=== PATIENT | female | born 1985 | race Caucasian/White ===

== ENCOUNTER 2021-02-03 16:37 | Emergency (ER) | payer OTHER ==
[~2021-02-03] VITALS: Ht 154.9 cm; Wt 52.1 kg
[2021-02-03 17:14] VITALS: BP 119/83
--- NOTE | 2021-02-03 17:32 | PHYS DOC ---
Past History Past Surgical History: No Surgical History (MAGID SOSA MD) Alcohol Use: None (MAGDI SOSA MD) General Adult EDM: Chief Complaint: PSYCH EVALUATION HPI: HPI: Patient coming in for depression and occasional suicidal thoughts. Patient feels like she feels like her head is not right. Denies any self-harm or hallucinations. Patient states she was released from a present in [place] about 6 months ago, states that for the last 4 years of it she was in the mental song of the facility. Patient takes risperidone, and states she has been compliant with her medications. Is currently living at the [facility]. She denies any recent stressors and feels safe with her surroundings. Denies any alcohol or drugs. (MAGDI SOSA MD) Review of Systems: Review of Systems: All other systems within normal limits except for as noted in the HPI (MAGDI SOSA MD) Physical Exam: PE: Constitutional: Well developed, well nourished, no acute distress, non-toxic appearance. [] HENT: Normocephalic, atraumatic, bilateral external ears normal, oropharynx moist, no oral exudates, nose normal. [] Eyes: PERRLA, EOMI, conjunctiva normal, no discharge. [] Neck: Normal range of motion, no tenderness, supple, no stridor. [] Cardiovascular:Heart rate regular rhythm, no murmur [] Lungs & Thorax: Bilateral breath sounds clear to auscultation [] Abdomen: Bowel sounds normal, soft, no tenderness, no masses, no pulsatile masses. [] Skin: Warm, dry, no erythema, no rash. [] Back: No tenderness, no CVA tenderness. [] Extremities: No tenderness, no cyanosis, no clubbing, ROM intact, no edema. [] Neurologic: Alert and oriented X 3, normal motor function, normal sensory function, no focal deficits noted. [] Psychologic: Affect normal, judgement normal, mood normal. [] (MAGDI SOSA MD) Current Patient Data: Vital Signs: Vital Signs Date Time Temp Pulse Resp B/P (MAP) Pulse Ox O2 Delivery O2 Flow Rate FiO2 02/03/21 17:14 18 119/83 (95) 100 Room Air (MAGDI SOSA MD) EKG: EKG: [] (MAGDI SOSA MD) Radiology/Procedures: Radiology/Procedures: [] (MAGDI SOSA MD) Heart Score: C/O Chest Pain: No Risk Factors: Risk Factors: DM, Current or recent (<one month) smoker, HTN, HLP, family history of CAD, obesity. Risk Scores: Score 0 - 3: 2.5% MACE over next 6 weeks - Discharge Home Score 4 - 6: 20.3% MACE over next 6 weeks - Admit for Clinical Observation Score 7 - 10: 72.7% MACE over next 6 weeks - Early Invasive Strategies (MAGDI SOSA MD) Course & Med Decision Making: Course & Med Decision Making Patient pending medical clearance at shift change. (MAGDI SOSA MD) Course & Med Decision Making See Dr. Sosa chart prior shift change. See PAT report/. Impression: 1. Depression 2. Anxiety 3. Suicidal Ideation.- No active plan (STEPHANI WARD MD) Dragon Disclaimer: Dragon Disclaimer: This electronic medical record was generated, in whole or in part, using a voice recognition dictation system. (MAGDI SOSA MD) Departure Departure: Referrals: PCP,NO (PCP) MAGDI SOSA MD Feb 03, 2021 17:32 STEPHANI WARD MD Feb 03, 2021 18:40
--- NOTE | 2021-02-03 17:53 | EKG ---
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
== END 2021-02-03 18:15 | disposition left against medical advice (07) ==
LOC: ER 16:37
DX: R45.851 Suicidal ideations (principal); F41.9 Anxiety disorder, unspecified; F32.9 Major depressive disorder, single episode, unspecified
CPT/HCPCS: 93005; 99285

== ENCOUNTER 2021-02-04 08:50 | Emergency (ER) | payer OTHER ==
[~2021-02-04] VITALS: Ht 154.9 cm; Wt 53.0 kg
--- NOTE | 2021-02-04 09:20 | NUR ---
PAT team called back
--- NOTE | 2021-02-04 09:38 | PHYS DOC ---
Past History Past Medical History: Anxiety, Depression, Schizophrenia Past Surgical History: No Surgical History Smoking: Non-smoker Alcohol Use: None Drug Use: None General Adult EDM: Chief Complaint: PSYCH EVALUATION HPI: HPI: 35-year-old female with history of schizophrenia presents to the ED with chief complaint of "going crazy". Patient states she has felt the sensation of feeling "out of control" for the last month. However today, she felt that she needed more help. Patient states that she is compliant with her risperidone medication. Patient denies any suicidal ideation or homicidal ideation, auditory or visual hallucinations. Patient is currently living at the [facility]. She reports following up with the [facility], where she sees Renae Ayala. Patient states she was hospitalized for psychiatric evaluation on Aug 28, 2020. Patient denies any medical concerns at this time. Patient is accompanied by care solid waste facility operator. Review of Systems: Review of Systems: Constitutional: Denies fever or chills Eyes: Denies redness or eye pain HENT: Denies nasal congestion or sore throat Respiratory: Denies cough or shortness of breath Cardiovascular: Denies chest pain or palpitations GI: Denies abdominal pain, nausea, or vomiting : Denies dysuria or hematuria Musculoskeletal: Denies back pain or joint pain Integument: Denies rash or skin lesions Neurologic: Denies headache, focal weakness or sensory changes Complete systems were reviewed and found to be within normal limits, except as documented in this note. Allergies: Allergies: Allergies Coded Allergies Type Severity Reaction Last Updated Verified No Known Drug Allergies 02/04/21 No Physical Exam: PE: Constitutional: Well developed, well nourished, no acute distress, non-toxic appearance HENT: Normocephalic, atraumatic Eyes: PERRL, EOMI, conjunctiva normal, no discharge Neck: Normal range of motion, no tenderness, supple Lungs & Thorax: No respiratory distress, equal chest rise and fall Abdomen: Soft, no tenderness Skin: Warm, dry, no erythema, no rash Extremities: No tenderness, ROM intact, no edema Neurologic: Alert and oriented X 3, normal motor function, normal sensory function, no focal deficits noted Psychologic: Affect anxious and withdrawn Current Patient Data: Vital Signs: Vital Signs Date Time Temp Pulse Resp B/P (MAP) Pulse Ox O2 Delivery O2 Flow Rate FiO2 02/04/21 09:09 97.9 66 18 93/63 (73) 98 Room Air EKG: EKG: [] Radiology/Procedures: Radiology/Procedures: [] Heart Score: C/O Chest Pain: N/A Course & Med Decision Making: Course & Med Decision Making 35-year-old female with history of schizophrenia presents to the ED with chief complaint of "going crazy". Psychiatric assessment team called for evaluation of patient. Psychiatric assessment team stated patient is safe to outpatient psychiatric evaluation center due to no suicidal ideation or homicidal ideation. Patient to follow with [facility]. Patient is resting comfortably in ED bed, in no acute distress and has no additional medical concerns at this time. Patient stable for discharge with outpatient follow-up with PCP/mental health. Discussed findings and plan with patient, who acknowledges understanding and agreement. Kelsi Disclaimer: Kelsi Disclaimer: This electronic medical record was generated, in whole or in part, using a voice recognition dictation system. Departure Departure: Impression: Primary Impression: Encounter for psychiatric assessment Additional Impression: Schizophrenia Qualified Codes: F20.9 - Schizophrenia, unspecified Disposition: 01 HOME / SELF CARE / HOMELESS Condition: STABLE Referrals: PCP,NO (PCP) Patient Instructions: Schizophrenia Additional Instructions: Please follow closely with [facility] for further mental health care. DEBRA ORTIZ DO Feb 04, 2021 09:38
[2021-02-04 10:46] LABS: AMPHETAMINE/METHAMPHETAMINE NEG (NEG); BARBITURATES NEG (NEG); BENZODIAZEPINES NEG (NEG); CANNABINOIDS NEG (NEG); COCAINE NEG (NEG); METHADONE NEG (NEG); OPIATES NEG (NEG); PHENCYCLIDINE NEG (NEG)
[2021-02-04 11:12] VITALS: BP 97/66
[2021-02-04 11:55] LABS: BACTERIA,URINE FEW /HPF (0-FEW); BILIRUBIN,URINE NEG (NEG); CLARITY,URINE HAZY; COLOR,URINE YELLOW; GLUCOSE,URINE NEG (NEG); NITRITE,URINE NEG (NEG); RBC,URINE OCC /HPF (0-2); SQUAMOUS EPITHELIAL CELL,UR MANY /LPF; UROBILINOGEN,URINE 0.2 mg/dL (0.2 mg/dL)
== END 2021-02-04 11:25 | disposition home or self-care (01) ==
LOC: ER 08:50
DX: Z00.8 Encounter for other general examination (principal); F20.9 Schizophrenia, unspecified; F41.9 Anxiety disorder, unspecified; F32.9 Major depressive disorder, single episode, unspecified
CPT/HCPCS: 36415; 80307; 81001; 81025; 87086; 99283

== ENCOUNTER 2021-02-11 12:55 | Emergency (ER) | payer OTHER | END 2021-02-11 14:13 | disposition left against medical advice (07) | LOC: ER 12:55 | DX: R45.851 Suicidal ideations (principal); Z53.21 Procedure and treatment not carried out due to patient leaving prior to being seen by health care provider ==

== ENCOUNTER 2021-03-31 09:57 | Emergency (ER) | payer OTHER ==
[~2021-03-31] VITALS: Ht 154.9 cm; Wt 53.0 kg
[2021-03-31 10:08] VITALS: BP 110/81
--- NOTE | 2021-03-31 10:51 | PHYS DOC ---
Past History Past Medical History: Anxiety, Depression, Schizophrenia (DARRIN WHITE APRN) Past Surgical History: No Surgical History (DARRIN WHITE APRN) Smoking: Non-smoker Alcohol Use: None Drug Use: None (DARRIN WHITE APRN) General Adult EDM: Chief Complaint: DEPRESSION HPI: HPI: Patient is a 36-year-old female who presents today for crying. Patient states that she has been crying off and on over the past 6 years due to her incarceration, she recently was released from assisted and August 2020, and she humza nues to have problems with depression and crying. Patient states that she sees a counselor at the [facility] that she is currently residing in and she has an appointment April 02, 2021 with a psychiatrist for further management of her depression. Patient at this time denies suicidal and homicidal ideations. (DARRIN WHITE APRN) Review of Systems: Review of Systems: Constitutional: Denies fever or chills Eyes: Denies change in visual acuity HENT: Denies nasal congestion or sore throat Respiratory: Denies cough or shortness of breath Cardiovascular: Denies chest pain or edema GI: Denies abdominal pain, nausea, vomiting, bloody stools or diarrhea : Denies dysuria Musculoskeletal: Denies back pain or joint pain Integument: Denies rash Neurologic: Denies headache, focal weakness or sensory changes Endocrine: Denies polyuria or polydipsia Lymphatic: Denies swollen glands Psychiatric: depression (DARRIN WHITE APRN) Allergies: Allergies: Allergies Coded Allergies Type Severity Reaction Last Updated Verified No Known Drug Allergies 02/04/21 No (DARRIN WHITE APRN) Physical Exam: PE: Constitutional: Well developed, well nourished, mild distress, non-toxic appearance. [] HENT: Normocephalic, atraumatic, bilateral external ears normal, oropharynx moist, no oral exudates, nose normal. [] Eyes: PERRLA, EOMI, conjunctiva normal, no discharge. [] Neck: Normal range of motion, no tenderness, supple, no stridor. [] Cardiovascular:Heart rate regular rhythm, no murmur [] Lungs & Thorax: Bilateral breath sounds clear to auscultation [] Abdomen: Bowel sounds normal, soft, no tenderness, no masses, no pulsatile masses. [] Skin: Warm, dry, no erythema, no rash. [] Back: No tenderness, no CVA tenderness. [] Extremities: No tenderness, no cyanosis, no clubbing, ROM intact, no edema. [] Neurologic: Alert and oriented X 3, normal motor function, normal sensory function, no focal deficits noted. [] Psychologic: Crying and anxious affect flat, judgement normal, mood depressed [] (DARRIN WHITE APRN) Current Patient Data: Vital Signs: Vital Signs Date Time Temp Pulse Resp B/P (MAP) Pulse Ox O2 Delivery O2 Flow Rate FiO2 03/31/21 10:08 97.9 80 14 110/81 (91) 98 Room Air (DARRIN WHITE APRN) EKG: EKG: [] (DARRIN WHITE APRN) Radiology/Procedures: Radiology/Procedures: [] (DARRIN WHITE APRN) Heart Score: C/O Chest Pain: N/A Risk Factors: Risk Factors: DM, Current or recent (<one month) smoker, HTN, HLP, family history of CAD, obesity. Risk Scores: Score 0 - 3: 2.5% MACE over next 6 weeks - Discharge Home Score 4 - 6: 20.3% MACE over next 6 weeks - Admit for Clinical Observation Score 7 - 10: 72.7% MACE over next 6 weeks - Early Invasive Strategies (DARRIN WHITE APRN) Course & Med Decision Making: Course & Med Decision Making Pertinent Labs and Imaging studies reviewed. (See chart for details) Patient is requesting to leave, she says at this time she is not suicidal or homicidal. Patient states she does have an appointment April 02, 2021 with a psychiatrist that was set up by the counselor at the [facility] in which she resides in. Patient was offered the PAT team evaluation and she declined at this time patient was given a list of resources here in [facility] that she can follow-up with for counseling and other psychiatric issues. (DARRIN WHITE APRN) Course & Med Decision Making I was the Attending physician on the above date of service of this patient. This patient was evaluated, examined, treated, and dispositioned from the emergency department by the mid-level practitioner. Although I was working at the time , no assistance was requested. Electronically signed, Ronak Mcintosh DO (RONAK MCINTOSH DO) Kelsi Disclaimer: Kelsi Disclaimer: This electronic medical record was generated, in whole or in part, using a voice recognition dictation system. (DARRIN WHITE APRN) Departure Departure: Impression: Primary Impression: Depressed Qualified Codes: F32.A - Depression, unspecified Disposition: 01 HOME / SELF CARE / HOMELESS Condition: STABLE Referrals: PCP,NO (PCP) Patient Instructions: Depression, Adult Additional Instructions: Follow-up with a counselor at the long term house you are staying at for further counseling Keep your appointment with your psychiatrist on April 02, 2021 Return to the emergency department if you wish to hurt yourself or others. DARRIN WHITE APRN Mar 31, 2021 10:51 RONAK MCINTOSH DO Apr 02, 2021 19:56
== END 2021-03-31 11:07 | disposition home or self-care (01) ==
LOC: ER 09:57
DX: F32.9 Major depressive disorder, single episode, unspecified (principal); F20.9 Schizophrenia, unspecified
CPT/HCPCS: 99281